=== PATIENT | male | born 1980 | race African-American/Black ===

== ENCOUNTER 2018-01-10 05:36 | Inpatient (IN) ==
[2018-01-10] MEDS ORDERED: TRANEXAMIC ACID 1,000 MG/10 ML VIAL ONE (06:36)
[2018-01-10] MEDS ORDERED: VANCOMYCIN 1,000 MG VIAL ONE (07:07)
[2018-01-10] MEDS ORDERED: ceFAZolin 1,000 MG VIAL ONE (07:07)
[2018-01-10] MEDS ORDERED: MORPHINE 10 MG/10 ML VIAL ONE (07:09)
[2018-01-10] MEDS ORDERED: BUPIVACAINE SPINAL 0.75% 2 ML AMP SPINAL ONE (07:09)
[2018-01-10] MEDS ORDERED: MORPHINE 4 MG/1 ML VIAL IV PRN (07:20)
[2018-01-10] MEDS ORDERED: LACTULOSE 20 GM/30 ML UDCUP PO PRN (07:20)
[2018-01-10] MEDS ORDERED: BISACODYL 10 MG SUPP RECTAL PRN (07:20)
[2018-01-10] MEDS ORDERED: NALOXONE 0.4 MG/ML VIAL IV PRN (07:20)
[2018-01-10] MEDS ORDERED: ONDANSETRON 4 MG/2 ML VIAL IV PRN (07:20)
[2018-01-10] MEDS ORDERED: PROMETHAZINE 25 MG/1 ML VIAL IM PRN (07:20)
[2018-01-10] MEDS ORDERED: TEMAZEPAM 7.5 MG CAPSULE PO PRN (07:20)
[2018-01-10] MEDS ORDERED: ROPIVACAINE 0.5% 30 ML VIAL ONE (07:50)
[2018-01-10] MEDS ORDERED: ACETAMINOPHEN 1,000 MG/100 ML VIAL IV ONE ×2 (09:45→10:50)
[2018-01-10] MEDS ORDERED: ePHEDrine 50 MG/ML AMP ONE (10:48)
[2018-01-10] MEDS ORDERED: fentaNYL 100 MCG/2 ML VIAL ONE (10:49)
[2018-01-10] MEDS ORDERED: PROPOFOL 200 MG/20 ML VIAL IV ONE (10:49)
[2018-01-10] MEDS ORDERED: GLYCOPYRROLATE 0.4 MG/2 ML VIAL ONE (10:49)
[2018-01-10] MEDS ORDERED: MIDAZOLAM 2 MG/2 ML VIAL ONE (10:49)
[2018-01-10] MEDS ORDERED: PHENYLEPHRINE 1 MG/10 ML SYRINGE IV ONE (10:50)
[2018-01-10] MEDS ORDERED: LACTATED RINGERS 1,000 ML IV ONE (10:50)
[2018-01-10] MEDS ORDERED: SODIUM CHLORIDE 0.9% 100 ML IV ONE (10:50)
[2018-01-10] MEDS ORDERED: SODIUM CHLORIDE 0.9% 250 ML IV ONE (10:50)
[2018-01-10] MEDS ORDERED: hydrOXYzine HCL 25 MG/1 ML VIAL IM PRN (10:58)
[2018-01-10] MEDS ORDERED: diphenhydrAMINE 50 MG/1 ML VIAL IV PRN (10:58)
[2018-01-10] MEDS: LACTATED RINGERS 1,000 ML IV SCH ×3 (11:30→20:49)
[2018-01-10] MEDS: MORPHINE PCA 30 MG/30 ML SYRINGE IV SCH (11:34)
[2018-01-10] MEDS ORDERED: INFLUENZA VIRUS VACCINE 0.5 ML SYRINGE IM ONE (11:57)
[2018-01-10] MEDS: DOCUSATE SODIUM 100 MG CAPSULE PO SCH ×2 (12:31→20:42)
[2018-01-10] MEDS: hydroCHLOROthiazide 12.5 MG CAPSULE PO SCH (12:31)
[2018-01-10] MEDS: amLODIPine 10 MG TABLET PO SCH (12:35)
[2018-01-10] MEDS: ceFAZolin 2,000 MG in PREMIX 1 EACH IV SCH ×2 (15:40→23:15)
[2018-01-10] MEDS: FONDAPARINUX 2.5 MG/0.5 ML SYRINGE SUBCUT SCH (20:42)
[2018-01-11] MEDS: LACTATED RINGERS 1,000 ML IV SCH ×3 (04:11→18:03)
[2018-01-11 05:44] LABS: Basophils % 0.2 % (0.0-0.8); Eosinophils # 0.3 10*3/uL (0.0-0.87); Eosinophils % 2.4 % (0.00-10.9); Hematocrit 32.1 VOL% (42.0-52.0); Hemoglobin 10.9 GM/DL (14.0-18.0); Immature Granulocytes % 0.6 %; Immature Granulocytes Absolute 0.06 #; Lymphocytes # 1.7 10*3/uL (1.4-4.0); Lymphocytes % 15.8 % (21.2-54.2); Mean Corpuscular Hemoglobin 31 PG (27-34); Mean Corpuscular Volume 91.2 FL (87-102); Mean Platelet Volume 10.7 FL (9.6-12.0); Monocytes % 9.7 % (1.7-12.7); Neutrophils # 7.5 10*3/uL (1.4-7.4); Neutrophils % 71.3 % (38.7-73.9); Platelet Count 233 T/CUMM (130-400); Red Blood Count 3.52 MC/CUMM (3.8-5.5); Red Cell Distribution Width 13.6 % (9.3-17.3); White Blood Count 10.5 T/CUMM (4-12)
[2018-01-11 06:05] LABS: Calcium 7.9 MG/DL (8.5-10.1); Osmolality,Calculated 271.1 MOS/KG (273-304); Potassium 3.2 MMOL/L (3.5-5.1)
[2018-01-11] MEDS: MORPHINE PCA 30 MG/30 ML SYRINGE IV SCH (08:29)
[2018-01-11] MEDS: DOCUSATE SODIUM 100 MG CAPSULE PO SCH ×2 (09:51→21:19)
[2018-01-11] MEDS: amLODIPine 10 MG TABLET PO SCH (09:52)
[2018-01-11] MEDS: MORPHINE 4 MG/1 ML VIAL IV PRN (12:21)
[2018-01-11] MEDS ORDERED: TUBERCULIN SKIN TEST 0.1 ML SYRINGE INTRADERM ONE (14:04)
[2018-01-11] MEDS: hydroCHLOROthiazide 12.5 MG CAPSULE PO SCH (16:30)
[2018-01-11] MEDS: FONDAPARINUX 2.5 MG/0.5 ML SYRINGE SUBCUT SCH (21:17)
[2018-01-11] MEDS: diphenhydrAMINE CAP 25 MG CAPSULE PO PRN (21:20)
[2018-01-12] MEDS: LACTATED RINGERS 1,000 ML IV SCH (00:44)
[2018-01-12] MEDS: MORPHINE PCA 30 MG/30 ML SYRINGE IV SCH (03:12)
[2018-01-12] MEDS: diphenhydrAMINE CAP 25 MG CAPSULE PO PRN ×3 (03:39→18:37)
[2018-01-12] MEDS: DOCUSATE SODIUM 100 MG CAPSULE PO SCH ×2 (08:49→20:51)
[2018-01-12] MEDS: amLODIPine 10 MG TABLET PO SCH (08:49)
[2018-01-12] MEDS: hydroCHLOROthiazide 12.5 MG CAPSULE PO SCH (08:49)
[2018-01-12] MEDS: MAGNESIUM HYDROXIDE SUSP 30 ML UDCUP PO PRN ×2 (08:50→16:29)
[2018-01-12] MEDS: MORPHINE 4 MG/1 ML VIAL IV PRN ×3 (10:47→18:37)
[2018-01-12] MEDS: FONDAPARINUX 2.5 MG/0.5 ML SYRINGE SUBCUT SCH (20:51)
[2018-01-13] MEDS: diphenhydrAMINE CAP 25 MG CAPSULE PO PRN ×2 (01:42→09:47)
[2018-01-13] MEDS: amLODIPine 10 MG TABLET PO SCH (09:47)
[2018-01-13] MEDS: DOCUSATE SODIUM 100 MG CAPSULE PO SCH (09:47)
[2018-01-13] MEDS: hydroCHLOROthiazide 12.5 MG CAPSULE PO SCH (09:47)
[2018-01-13 11:12] VITALS: BP 141/93
[2018-01-13] MEDS: LACTATED RINGERS 1,000 ML IV SCH (11:21)
== END 2018-01-13 11:42 | disposition home health service (06) | DRG 470 ==
LOC: N.OR 05:36 → N.SDSINP 05:38 → N.3E 09:44
PROVIDERS: ADMIT Orthopaedic Surgery; ATTEND Orthopaedic Surgery